=== PATIENT | female | born 1990 | race Caucasian/White ===

== ENCOUNTER 2021-09-20 20:45 | Inpatient (IN) | payer OTHER ==
[~2021-09-20] VITALS: Ht 175.3 cm; Wt 103.9 kg
[~2021-09-20 20:45] MED LIST: BACTRIM DS TAB1 EACH PO; BIOTIN10000 MCG PO; BUPROPION XL150 MG PO; NORETHINDRONE PO; PROBIOTIC1 EAC1 PO; VENTOLIN HFA IN18 GM INH; ZOLOFT100 M1 PO
[2021-09-20 23:07] LABS: HCT 40.5 % (37.0-47.0); HGB 13.6 g/dl (12.5-16.0); MCH 31.1 pg (25.0-31.0); MCHC 33.6 g/dL (32.0-36.0); MCV 92.5 fL (78.0-100.0); RBC 4.38 M/uL (4.20-5.40); RDW 12.8 % (11.5-14.0); WBC 12.5 K/uL (4.0-10.5)
[2021-09-20 23:32] LABS: BILIRUBIN NEGATIVE (NEGATIVE); BLOOD NEGATIVE Ery/uL (NEGATIVE); CLARITY CLEAR (CLEAR); COLOR YELLOW (YELLOW); GLUCOSE (U) NORMAL (NORMAL); LEUKOCYTES NEGATIVE Leu/uL (NEGATIVE); NITRITE NEGATIVE (NEGATIVE); PROTEIN NEGATIVE (NEGATIVE); SPECIFIC GRAVITY 1.025 (1.001-1.030); UROBILINOGEN 0.2 mg/dL (0.2-1.0); pH 6.5 (5.0-9.0)
[2021-09-20 23:35] LABS: AMPHETAMINES NEGATIVE (NEGATIVE); BARBITURATES NEGATIVE (NEGATIVE); ECSTASY (MDMA) NEGATIVE (NEGATIVE); MARIJUANA (THC) NEGATIVE (NEGATIVE); METHADONE NEGATIVE (NEGATIVE); OPIATES NEGATIVE (NEGATIVE); OXYCODONE NEGATIVE (NEGATIVE)
[2021-09-22 06:48] LABS: HCT 35.3 % (37.0-47.0); HGB 11.7 g/dl (12.5-16.0); MCH 31.2 pg (25.0-31.0); MCHC 33.1 g/dL (32.0-36.0); MCV 94.1 fL (78.0-100.0); MPV 10.2 fL (6.0-9.5); RBC 3.75 M/uL (4.20-5.40); RDW 12.7 % (11.5-14.0); WBC 11.7 K/uL (4.0-10.5)
[2021-09-23] MEDS ORDERED: ONDANSETRON ODT4 MG SL (23:30)
[2021-09-23] MEDS ORDERED: IBUPROFEN800 MG PO (23:30)
== END 2021-09-23 12:13 | disposition home or self-care (01) | DRG 807 ==
LOC: FOB 20:45
PROVIDERS: ADMIT Obstetrics & Gynecology
PROC: 0UQMXZZ Repair Vulva, External Approach (ICD-10-PCS; principal; 2021-09-21)
PROC: 10E0XZZ Delivery of Products of Conception, External Approach (ICD-10-PCS; 2021-09-21)
DX: O99.02 Anemia complicating childbirth (principal); Z37.0 Single live birth; F32.A Depression, unspecified; O99.344 Other mental disorders complicating childbirth; Z3A.39 39 weeks gestation of pregnancy; Z20.822 Contact with and (suspected) exposure to COVID-19; O99.844 Bariatric surgery status complicating childbirth; O36.63X0 Maternal care for excessive fetal growth, third trimester, not applicable or unspecified; O71.82 Other specified trauma to perineum and vulva; R87.622 Low grade squamous intraepithelial lesion on cytologic smear of vagina (LGSIL)
CPT/HCPCS: 36415; 80305; 81003; 86850; 86900; 86901; J2540; J7120; U0002

== ENCOUNTER 2021-09-23 21:01 | Emergency (ER) | payer OTHER ==
[2021-09-23] MEDS ORDERED: IBUPROFEN800 MG PO (23:30)
[2021-09-23] MEDS ORDERED: ONDANSETRON ODT4 MG SL (23:30)
== END 2021-09-23 23:58 | disposition home or self-care (01) ==
LOC: FER 21:01
DX: O90.89 Other complications of the puerperium, not elsewhere classified (principal); R10.9 Unspecified abdominal pain; R51.9 Headache, unspecified
CPT/HCPCS: 99283; J1885